=== PATIENT | female | born 1950 | race Caucasian/White ===

== ENCOUNTER → 2016-07-21 | Outpatient (CLI) | payer BC ==
--- NOTE | 2016-07-21 12:40 | MAMMOGRAPHY REPORT ---
BILATERAL DIGITAL SCREENING MAMMOGRAM WITH CAD: 07/21/2016 TECHNIQUE: Current study was also evaluated with a Computer Aided Detection (CAD) system. Bilatera l CC and MLO views were obtained. COMPARISON: Comparison is made to exams dated: 07/18/2015 mammogram, 07/17/2014 mammogram, 07/14/2013 ma mmogram, 07/03/2011 mammogram, 07/15/2012 mammogram, and 07/08/2012 mammogram - [facility] nter. BREAST COMPOSITION: The tissue of both breasts is heterogeneously dense, which may obscure small ma sses. FINDINGS: No suspicious masses, calcifications, or areas of architectural distortion are noted in e ither breast. There has been no significant interval change compared to prior exams. Scattered bilat eral benign-appearing calcifications are not significantly changed. IMPRESSION: ACR BI-RADS CATEGORY 2: BENIGN There is no mammographic evidence of malignancy. A 1 year screening mammogram is recommended. The p atient will receive written notification of the results. Approximately 10% of breast cancers are not detected with mammography. A negative mammographic repor t should not delay biopsy if a clinically suggestive mass is present. Wendy Weinstein M.D. ah/:07/21/2016 12:28:36 Piccoloist: Svetlana DEUTSCH([place])(M), [facility] letter sent: Normal 1/2 BI-RADS Code: ACR BI-RADS Category 2: Benign
== END | disposition home or self-care (01) ==
LOC: C.MAMM 10:13
PROVIDERS: ATTEND Obstetrics & Gynecology
DX: Z12.31 Encounter for screening mammogram for malignant neoplasm of breast (principal)

== ENCOUNTER → 2017-07-23 | Outpatient (CLI) | payer BC ==
--- NOTE | 2017-07-23 15:08 | MAMMOGRAPHY REPORT ---
BILATERAL DIGITAL SCREENING MAMMOGRAM TOMOSYNTHESIS WITH CAD: 07/23/2017 CLINICAL HISTORY: Routine screening. Patient has no complaints. TECHNIQUE: Breast tomosynthesis in addition to standard 2D mammography was performed. Current study was also evaluated with a Computer Aided Detection (CAD) system. COMPARISON: Comparison is made to exams dated: 07/21/2016 mammogram, 07/18/2015 mammogram, 07/17/2014 ma mmogram, 07/14/2013 mammogram, 07/15/2012 ultrasound, and 07/15/2012 mammogram - [facility] er. BREAST COMPOSITION: The tissue of both breasts is heterogeneously dense, which may obscure small mas ses. FINDINGS: No suspicious masses, calcifications, or areas of architectural distortion are noted in ei ther breast. There has been no significant interval change compared to prior exams. Scattered bilater al benign-appearing calcifications are not significantly changed. IMPRESSION: ACR BI-RADS CATEGORY 2: BENIGN There is no mammographic evidence of malignancy. A 1 year screening mammogram is recommended. The pa tient will receive written notification of the results. Approximately 10% of breast cancers are not detected with mammography. A negative mammographic report should not delay biopsy if a clinically suggestive mass is present. Wendy Weinstein M.D. /:07/23/2017 12:14:09 Gauge And Weigh Machine Adjuster: [place] García M, [facility] letter sent: Normal 1/2 BI-RADS Code: ACR BI-RADS Category 2: Benign
== END | disposition home or self-care (01) ==
LOC: C.MAMM 10:30
PROVIDERS: ATTEND Family Medicine
DX: Z12.31 Encounter for screening mammogram for malignant neoplasm of breast (principal)

== ENCOUNTER 2020-08-17 08:40 | Observation (INO) ==
[2020-08-17] MEDS ORDERED: FAMOTIDINE 20 MG in SYRINGE 3 ML IV STA (09:37)
[2020-08-17] MEDS ORDERED: diphenhydrAMINE 50 MG/ML VIAL IV STA (09:37)
[2020-08-17 09:49] LABS: Eosinophils # (auto) 0.01 K/uL (0-0.5); Eosinophils % (auto) 0.1 %; Hematocrit (blood only) 44.8 % (37-47); Hemoglobin 15.4 g/dL (12.0-16.0); Immature Granulocytes # (auto) 0.02 K/uL (0.00-0.02); Immature Granulocytes % (auto) 0.2 %; Lymphocytes # (auto) 0.56 K/uL (1.2-3.4); Mean Corpuscular Hemoglobin 29.7 pg (25-34); Mean Corpuscular Hgb Conc 34.4 g/dL (32-36); Mean Corpuscular Volume 86.5 fL (80-100); Mean Platelet Volume 13.3 fL (7.4-10.4); Monocytes # (auto) 0.23 K/uL (0.11-0.59); Neutrophils # (auto) 10.45 K/uL (1.4-6.5); Neutrophils % (auto) 92.7 %; Platelet Count 229 K/uL (130-400); RDW Standard Deviation 44.4 fL (36.4-46.3); Red Blood Count 5.18 M/uL (4.2-5.4); White Blood Count 11.27 K/uL (4.8-10.8)
[2020-08-17] MEDS ORDERED: FAMOTIDINE 20MG/5ML IV PUSH IV ONE (09:52)
[2020-08-17 10:02] LABS: Albumin Level 4.1 gm/dl (3.4-5.0); BUN Creatinine Ratio 26.2 (10-20); Bilirubin,Total 0.8 mg/dl (0.2-1); Creatinine Clr Calc Pharmacy 53.8 ml/min; Est GFR (African American) 76.1; Est GFR (Non-African American) 65.7; Globulin 4.1 gm/dl (2.5-4.0); Partial Thromboplastin Ratio 0.9; Partial Thromboplastin Time 24.8 Seconds (21.0-31.0); Potassium 3.3 mmol/L (3.5-5.1); Prothrombin Time 10.3 Seconds (9.0-12.0); Total Protein 8.2 gm/dl (6.4-8.2)
--- NOTE | 2020-08-17 10:32 | Emergency Department Note ---
ED Visit Note This patient was seen in concert with Dr. Steven and we discussed and agreed upon the history, physical, assessment, and plan. See attending's note for details. . Resident Activity Tracking Resident Involvement: Resident Care Provided Care Provided: Adult ED
--- NOTE | 2020-08-17 10:35 | Emergency Department Note ---
Impression & Plan Urticarial rash ED Provider Note NAME: BABITA RODRIGUEZ AGE: 70 SEX: F : 1950 ARRIVES VIA: Walk-In INFORMANT: Patient, ED PROVIDER(S): Paul Steven DO CHIEF COMPLAINT: Rash HPI: The patient is a 70-year-old female who presented to the emergency department for an evaluation of rash. The patient started having a rash approxi mately 1 week ago. Initially it started on her lower extremities. It was erythematous and pruritic in nature. She was seen by her primary care physician and then seen by a rn registry. At that time she was started on a course of steroids. 48 hours after the steroid she not only had no improvement but started having involvement of her upper body and trunk. She started noticing facial rash as well. She was seen again by the rn registry and sent to the emergency department for further evaluation. She has no mucous membrane involvement. She is had no fever or systemic symptoms. This morning that she thought she was having some degree of involvement of her posterior oropharynx and this is what prompted her calling her rn registry back. She denies having any recent traveling. She has had no other exposures. ROS: See above HPI for pertinent positives & negatives. A total of 10 systems reviewed and were otherwise negative. PAST MEDICAL HISTORY: See Below PAST SURGICAL HISTORY: See Below FAMILY HISTORY: See Below SOCIAL HISTORY: See Below HOME MEDICATIONS: See Below ALLERGIES: See Below VITALS: See Below PHYSICAL EXAMINATION: GENERAL: Patient is awake alert in no acute distress patient is resting comfortably and showing no signs of anxiety EYES: The conjunctivae are clear. The pupils are round and reactive. EARS, NOSE, MOUTH AND THROAT: The nose is without any evidence of any deformity. Mucous membranes are moist. NECK: The neck is nontender and supple. RESPIRATORY: Normal respiratory effort is noted there is no evidence of wheezing rhonchi or rales CARDIOVASCULAR: Regular rate and rhythm noted there no murmurs rubs or gallops normal S1 normal S2. GASTROINTESTINAL: The abdomen is soft. Abdomen is nontender. MUSCULOSKELETAL/EXTREMITIES: There is no evidence of gross deformity full range of motion is noted in the hips and shoulders. SKIN: There is a generalized rash noted over the entire body. In the lower extremities where the rash is oldest it is nonblanching but does still have an appearance of urticaria. There is some pruritic lesions noted in the lower extremities. Over the face and trunk the rash is urticarial in nature and does kenneth easily. NEUROLOGIC: Patient is awake alert and oriented x 3. MEDICAL DECISION MAKING: The patient is a 70-year-old female who is a history of diabetes who started having a rash approximately 1 week ago. The patient started having in a sending urticarial type rash which began on her lower extremities. There appears to be significant increase in the new lesions that are noted on her upper torso as well as her scalp. I discussed the patient's laboratory and radiographic studies with her. We also consulted the patient's primary rn registry who did send her to the emergency department today for further evaluation. He was very concerned that the patient may benefit from IV steroids and she may require inpatient management to ensure her blood sugar did not become out of hand. I discussed her case with the on-call [facility] hospitalist group. They have agreed to evaluate the patient in the emergency department for further management and disposition. The patient was agreeable with this plan. She was treated with IV steroid. Triage Nursing notes reviewed. Prior medical records reviewed Vital Signs: reviewed and remarkable for no significant abnormalities Differential diagnosis: Contact dermatitis, viral exanthem, urticaria, allergic reaction, Sifuentes- Kapil syndrome, toxic epidermal necrolysis, erythema multiforme, cellulitis, scabies, HSV, varicella, zoster, eczema, staph scalded skin syndrome, fungal in fection, as well as other pathologies. ER treatment provided: See below Diagnostics interpreted by me: ECG: none Cardiac Monitoring: An order was placed for continuous cardiac monitoring. The monitor shows a rate of 85 bpm with sinus rhythm. Laboratory studies: As stated above and show below. Imaging studies: See below Consultation(s): I discussed this case with Dr. Crisostomo who is on-call for the [facility] hospitalist group. Past Med/Surg History Medical History Acne Diabetes mellitus H/O herpes simplex infection H/O: depression History of uterine fibroid Hypertension Surgical History H/O colonoscopy 11/22/2009 History of biopsy Biopsy of Soft Tissue of Neck History of tonsillectomy S/P AMELIA-BSO (total abdominal hysterectomy and bilateral salpingo-oophorectomy) Family History Father Myocardial infarction Congestive heart failure Aunt Breast cancer Maternal Denies family history of Ovarian cancer Prostate cancer Colorectal cancer Social History Smoking Status: Never smoker Hx Alcohol Use: Yes Hx Substance Use: No Preferred Language: Tanzanian marital status: / Feels Safe at Home: Yes Allergies Allergies Allergy/AdvReac Type Severity Reaction Status Date / Time Sulfa (Sulfonamide Allergy Verified 08/17/20 09:50 Antibiotics) Home Meds Home Medications Medication Instructions Recorded Confirmed aspirin 81 mg tablet,delayed 81 mg PO QAM 06/11/19 08/17/20 release indapamide 1.25 mg tablet 1.25 mg PO QAM 06/11/19 08/17/20 triamcinolone acetonide 0.1 % 1 appln TOP BID gm 06/11/19 08/17/20 topical cream valacyclovir 500 mg tablet 500 mg PO DAILY PRN 06/11/19 08/17/20 metformin 1,000 mg tablet 1,000 mg PO .COMPLEX 06/23/19 08/17/20 prednisone 0 mg PO .TAPER 08/17/20 08/17/20 Results & Data (ED) Vital Signs Vital Signs - 24 hr 08/17/20 08:42 08/17/20 09:51 08/17/20 10:01 Temperature 37.1 C Temperature Source Temporal Artery Scan Pulse Rate 87 67 Respiratory Rate 16 20 Respiratory Effort / Characteristics Non-Labored Spontaneous Respiratory Depth Normal Respiratory Pattern Regular Blood Pressure 124/83 120/67 Blood Pressure Mean 96 84 Blood Pressure Position Sitting Pulse Oximetry 99 99 Oxygen Delivery Method Room Air Sepsis Recent Fever Within 48 Hours No Sepsis New/Unexplained Change in Mental Status No Sepsis Action Taken by Nursing No Action Required 08/17/20 10:05 08/17/20 10:30 08/17/20 11:00 Temperature Temperature Source Pulse Rate 65 68 66 Respiratory Rate 19 17 18 Respiratory Effort / Characteristics Respiratory Depth Respiratory Pattern Blood Pressure 117/62 114/61 Blood Pressure Mean 80 78 Blood Pressure Position Pulse Oximetry Oxygen Delivery Method Sepsis Recent Fever Within 48 Hours Sepsis New/Unexplained Change in Mental Status Sepsis Action Taken by Nursing 08/17/20 11:01 08/17/20 11:30 08/17/20 12:00 Temperature Temperature Source Pulse Rate 66 65 71 Respiratory Rate 18 19 17 Respiratory Effort / Characteristics Respiratory Depth Respiratory Pattern Blood Pressure Blood Pressure Mean Blood Pressure Position Pulse Oximetry Oxygen Delivery Method Sepsis Recent Fever Within 48 Hours Sepsis New/Unexplained Change in Mental Status Sepsis Action Taken by Nursing 08/17/20 12:30 08/17/20 13:00 08/17/20 13:16 Temperature Temperature Source Pulse Rate 71 76 62 Respiratory Rate 20 19 17 Respiratory Effort / Characteristics Respiratory Depth Respiratory Pattern Blood Pressure 125/59 L Blood Pressure Mean 81 Blood Pressure Position Pulse Oximetry Oxygen Delivery Method Sepsis Recent Fever Within 48 Hours Sepsis New/Unexplained Change in Mental Status Sepsis Action Taken by Nursing 08/17/20 13:17 08/17/20 13:30 08/17/20 13:31 Temperature Temperature Source Pulse Rate 70 68 67 Respiratory Rate 19 18 17 Respiratory Effort / Characteristics Respiratory Depth Respiratory Pattern Blood Pressure 120/63 Blood Pressure Mean 82 Blood Pressure Position Pulse Oximetry Oxygen Delivery Method Sepsis Recent Fever Within 48 Hours Sepsis New/Unexplained Change in Mental Status Sepsis Action Taken by Nursing 08/17/20 14:00 08/17/20 14:01 Temperature Temperature Source Pulse Rate 78 82 Respiratory Rate 17 20 Respiratory Effort / Characteristics Respiratory Depth Respiratory Pattern Blood Pressure 128/54 L Blood Pressure Mean 78 Blood Pressure Position Pulse Oximetry Oxygen Delivery Method Sepsis Recent Fever Within 48 Hours Sepsis New/Unexplained Change in Mental Status Sepsis Action Taken by Half-Way Medications Current Medication List: was personally reviewed by me Laboratory Data Attestation: I reviewed the patient's lab results. Result diagrams: 08/17/20 09:00 08/17/20 09:00 Lab Results 08/17/20 08/17/20 08/17/20 Range/Units 09:00 09:00 09:00 WBC 11.27 H (4.8-10.8) K/uL RBC 5.18 (4.2-5.4) M/uL Hgb 15.4 (12.0-16.0) g/dL Hct 44.8 (37-47) % MCV 86.5 (80-100) fL MCH 29.7 (25-34) pg MCHC 34.4 (32-36) g/dL RDW Std Deviation 44.4 (36.4-46.3) fL RDW Coeff of Isaías 14.0 (11.5-14.5) % Plt Count 229 (130-400) K/uL MPV 13.3 H (7.4-10.4) fL Immature Gran % (Auto) 0.2 % Neut % (Auto) 92.7 % Lymph % (Auto) 5.0 % Rush % (Auto) 2.0 % Eos % (Auto) 0.1 % Baso % (Auto) 0.0 % Neut # (Auto) 10.45 H (1.4-6.5) K/uL Lymph # (Auto) 0.56 L (1.2-3.4) K/uL Rush # (Auto) 0.23 (0.11-0.59) K/uL Eos # (Auto) 0.01 (0-0.5) K/uL Baso # (Auto) 0.00 (0-0.2) K/uL Immature Gran # (Auto) 0.02 (0.00-0.02) K/uL ESR 29 H (0-21) mm/hr PT 10.3 (9.0-12.0) Seconds INR 1.0 (0.9-1.1) APTT 24.8 (21.0-31.0) Seconds PTT Ratio 0.9 Sodium (136-145) mmol/L Potassium (3.5-5.1) mmol/L Chloride (98-107) mmol/L Carbon Dioxide (21-32) mmol/L Anion Gap (3-11) BUN (7-18) mg/dl Creatinine (0.6-1.2) mg/dl Est Cr Clr Drug Dosing ml/min Est GFR ( Amer) Est GFR (Non-Af Amer) BUN/Creatinine Ratio (10-20) Glucose (70-99) mg/dl Calcium (8.5-10.1) mg/dl Total Bilirubin (0.2-1) mg/dl AST (15-37) U/L ALT (12-78) U/L Alkaline Phosphatase (45-117) U/L C-Reactive Protein (0-0.29) mg/dl Total Protein (6.4-8.2) gm/dl Albumin (3.4-5.0) gm/dl Globulin (2.5-4.0) gm/dl Albumin/Globulin Ratio (0.9-2) Lipase (73-393) U/L Specimen Hemolysis Urine Color Urine Appearance (Clear) Urine pH (4.5-7.5) Ur Specific [place] (1.000-1.030) Urine Protein (Negative) Urine Glucose (UA) (Negative) Urine Ketones (Negative) Urine Blood (Negative) Urine Nitrite (Negative) Urine Bilirubin (Negative) Urine Urobilinogen (Negative) Ur Leukocyte Esterase (Negative) 08/17/20 08/17/20 Range/Units 09:00 11:28 WBC (4.8-10.8) K/uL RBC (4.2-5.4) M/uL Hgb (12.0-16.0) g/dL Hct (37-47) % MCV (80-100) fL MCH (25-34) pg MCHC (32-36) g/dL RDW Std Deviation (36.4-46.3) fL RDW Coeff of Isaías (11.5-14.5) % Plt Count (130-400) K/uL MPV (7.4-10.4) fL Immature Gran % (Auto) % Neut % (Auto) % Lymph % (Auto) % Rush % (Auto) % Eos % (Auto) % Baso % (Auto) % Neut # (Auto) (1.4-6.5) K/uL Lymph # (Auto) (1.2-3.4) K/uL Rush # (Auto) (0.11-0.59) K/uL Eos # (Auto) (0-0.5) K/uL Baso # (Auto) (0-0.2) K/uL Immature Gran # (Auto) (0.00-0.02) K/uL ESR (0-21) mm/hr PT (9.0-12.0) Seconds INR (0.9-1.1) APTT (21.0-31.0) Seconds PTT Ratio Sodium 137 (136-145) mmol/L Potassium 3.3 L (3.5-5.1) mmol/L Chloride 103 (98-107) mmol/L Carbon Dioxide 27 (21-32) mmol/L Anion Gap 7.0 (3-11) BUN 24 H (7-18) mg/dl Creatinine 0.90 (0.6-1.2) mg/dl Est Cr Clr Drug Dosing 53.8 ml/min Est GFR ( Amer) 76.1 Est GFR (Non-Af Amer) 65.7 BUN/Creatinine Ratio 26.2 H (10-20) Glucose 214 H (70-99) mg/dl Calcium 10.0 (8.5-10.1) mg/dl Total Bilirubin 0.8 (0.2-1) mg/dl AST 18 (15-37) U/L ALT 21 (12-78) U/L Alkaline Phosphatase 71 (45-117) U/L C-Reactive Protein 12.00 H (0-0.29) mg/dl Total Protein 8.2 (6.4-8.2) gm/dl Albumin 4.1 (3.4-5.0) gm/dl Globulin 4.1 H (2.5-4.0) gm/dl Albumin/Globulin Ratio 1.0 (0.9-2) Lipase 72 L (73-393) U/L Specimen Hemolysis Urine Color Yellow Urine Appearance Clear (Clear) Urine pH 5.5 (4.5-7.5) Ur Specific [place] 1.026 (1.000-1.030) Urine Protein Negative (Negative) Urine Glucose (UA) 3+ H (Negative) Urine Ketones 1+ H (Negative) Urine Blood Negative (Negative) Urine Nitrite Negative (Negative) Urine Bilirubin Negative (Negative) Urine Urobilinogen Negative (Negative) Ur Leukocyte Esterase Negative (Negative) Administered Medications Discontinued Medications Diphenhydramine HCl (Diphenhydramine 50 Mg/Ml Vial) 25 mg IV NOW STA Stop: 08/17/20 09:38 Last Admin: 08/17/20 09:56 Dose: 25 mg Documented by: [id number] Famotidine (Famotidine 20mg/5ml Iv Push) Confirm Administered Dose 20 mg IV .STK-MED ONE Stop: 08/17/20 09:53 Last Admin: 08/17/20 09:56 Dose: 20 mg Documented by: [id number] Famotidine 20 mg/ Syringe 5 mls @ 2.5 mls/min IV NOW STA Stop: 08/17/20 09:38 Last Admin: 08/17/20 09:56 Dose: Not Given Documented by: [id number] Methylprednisolone (Methylprednisolone 125 Mg/2 Ml Vial) 125 mg IV NOW STA Stop: 08/17/20 10:55 Last Admin: 08/17/20 11:07 Dose: 125 mg Documented by: [id number] Imaging Data Radiologist's Impression: Patient: BABITA RODRIGUEZ Admit Date: 08/17/20 MR#: [id number] Address1: [address] [place] [address] Acct ID:[id number] Address2: Date: 1950 [facility] Zip: [place] [id number] Age: 70 Location: ED Sex: F Room/Bed: Att Phy: Diagnosis: SENT BY DR. VELASCO [facility] Phy: Rashaun Ahn MD Service Date: 08/17/20 [facility] Phy: Interpreting Phy: Braden Rogers Admit Phy: Ordering Phy: Derek Greene MD cc: ~ XR chest 1V portable HISTORY: 70 years-old Female SOB acute shortness of breath COMPARISON: None TECHNIQUE: Portable AP view of the chest FINDINGS: Cardiomediastinal and hilar silhouettes are within normal limits. There is no pneumothorax, pleural effusion, airspace consolidation or overt pulmonary edema. The bones of the chest appear grossly intact. Spondylitic spurring of the spine. IMPRESSION: No acute process. ACT 112: Negative or not required by law. The above report was generated using voice recognition software. It may contain grammatical, syntax or spelling errors. Electronically signed by: Aman Rogers M.D. 08/17/2020 10:39 AM Dictated: 08/17/20 1038 Transcribed: 08/17/20 1038 Discharge Plan Visit Data Chief Complaint: Rash Stated Complaint: SENT BY DR. VELASCO ED Provider: Paul Steven ED Midlevel Provider: Derek Greene Discharge Problem: Urticarial rash Patient Disposition: Being Evaluated by Hospitalist Condition: Good Forms Stand Alone Forms: [employer] Prescriptions Prescriptions: No Action aspirin [Aspirin Low Dose] 81 mg tablet,delayed release (DR/EC) 81 mg PO QAM RF: 0 indapamide 1.25 mg tablet 1.25 mg PO QAM RF: 0 triamcinolone acetonide 0.1 % cream 1 appln TOP BID RF: 0 valacyclovir 500 mg tablet 500 mg PO DAILY PRN (Reason: Outbreak) RF: 0 metformin 1,000 mg tablet 1,000 mg PO .COMPLEX RF: 0 prednisone 20 mg tablet 0 mg PO .TAPER RF: 0 Referrals Referrals: Donavan Ahn MD [Primary Care Provider] -
--- NOTE | 2020-08-17 10:40 | XRay Report ---
XR chest 1V portable HISTORY: 70 years-old Female SOB acute shortness of breath COMPARISON: None TECHNIQUE: Portable AP view of the chest FINDINGS: Cardiomediastinal and hilar silhouettes are within normal limits. There is no pneumothorax, pleural e ffusion, airspace consolidation or overt pulmonary edema. The bones of the chest appear grossly intac t. Spondylitic spurring of the spine. IMPRESSION: No acute process. ACT 112: Negative or not required by law. The above report was generated using voice recognition software. It may contain grammatical, syntax o r spelling errors. Electronically signed by: Aman Rogers M.D. 08/17/2020 10:39 AM
[2020-08-17] MEDS ORDERED: methylPREDNISolone 125 MG/2 ML VIAL IV STA (10:54)
[2020-08-17 11:36] LABS: Appearance Urine Clear (Clear); Bilirubin Urine Negative (Negative); Blood Urine Negative (Negative); Color Urine Yellow; Glucose Urine UA 3+ (Negative); Ketones Urine 1+ (Negative); Leukocyte Esterase Urine Negative (Negative); Nitrite Urine Negative (Negative); Protein Urine Negative (Negative); Specific Gravity Urine 1.026 (1.000-1.030); Urobilinogen Urine Negative (Negative); pH Urine 5.5 (4.5-7.5)
--- NOTE | 2020-08-17 14:30 | History & Physical Report ---
Date of Service August 17, 2020 Assessment & Plan (1) Urticarial rash: Suspect possible allergic reaction to dust/mold/rodent feces? That she was exposed to last week for this started. Now with lip and tongue swelling difficulty swallowing which is improving now with IV steroids in the ER Bring in on observation overnight for continued treatment for allergic reaction and rash as below -Consult gym manager for further evaluation-much appreciated -Tryptase was checked in the ER and pending, ESR is minimally elevated at 27 -Continue IV [id number] in the ER we will continue Solu-Medrol 60 mg IV every 8 hours and convert back to prednisone on discharge -Start famotidine 20 mg IV every 12 hours Start Zyrtec 10 mg p.o. nightly Benadryl every 6 hours as needed for itching Observe for any worsening or recurrent lip and tongue swelling (2) Lip swelling: As above (3) Hypertension: Blood pressures are well controlled Continue home indapamide (4) Diabetes mellitus: Well-controlled with diet and she is lost 35 pounds and on metformin at home Hold metformin while here With hyperglycemia secondary to corticosteroid use Start NovoLog supplemental insulin and [id number] need to add on Lantus if hyperglycemia is severe (5) Hypokalemia: Mildly low potassium Replace with oral potassium chloride Follow BMP in the morning (6) Leukocytosis: WBC count 11, is likely secondary to corticosteroid use as an outpatient No need to follow CBC (7) DVT prophylaxis: SCDs, ambulation Disposition-bring in on observation overnight as above History of Present Illness Chief Complaint: Rash, throat and lip swelling Primary Care Provider: Donavan Ahn MD This patient is a 70-year-old female with a history of DM 2 on Metformin, HTN, who presents to the ER after progressively worsening rash all over her body and development of lip swelling and difficulty swallowing this morning. She reports last Thursday she started with itching on the feet and by Thursday had a rash starting on her feet and ankles. Throughout the next several days the slowly worked its way up her legs abdomen trunk and all the way up to her face and forehead by Thursday. She saw her PCP who put her on triamcinolone cream and got her an JOYA appointment with dermatology that same day. She was prescribed Atarax some prednisone 60 mg daily. She continues to be extremely itchy all over, is not sleeping, feels a burning sensation over and had some chills. Denies fevers and has been checking her temperature. She developed lip swelling and difficulty swallowing her toast this morning and went back to the block machine operator who referred her to the ER after noting those symptoms. In the ER, she received IV Solu-Medrol and IV Pepcid and felt that she was already improving with the lip swelling. She denies any shortness of breath or lightheadedness, no wheezing or cough. No abdominal pain, no nausea or vomiting. No diarrhea. Her urine is a little bit darker than usual but she is making urine. She had her first Covid vaccine 4 weeks ago and was due to get 1 2 days ago but this was placed on hold due to her rash and ongoing need for prednisone. She reports no new medications or soaps or detergents or medications-of note, she is also on multiple supplements as an outpatient to include g lucosamine/chondroitin, super B complex, Echinacea, vitamin D, Aida-C, and Aleve as needed-none of these are new. 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 She reports last Thursday and Thursday, she spent all day unpacking dishes and things from a to state that were wrapped with newspaper from the and were covered in rodent feces, dust and mold. Her chest x-ray was normal in the ER. Labs were notable for a very mild leukocytosis which is likely induced by margination from prednisone as well as mild hypokalemia and some hyperglycemia and an elevated CRP of 12. Urinalysis showed 3+ glucose and 1+ ketones. A Covid test was pending at the time of admission. She will be admitted on observation for throat and lip swelling in the setting of diffuse urticarial rash for IV steroids and close observation of her airway. Allergies Allergy/AdvReac Type Severity Reaction Status Date / Time Sulfa (Sulfonamide Allergy Verified 08/17/20 09:50 Antibiotics) Home Medications Medication Instructions Recorded Confirmed Type aspirin 81 mg tablet,delayed 81 mg PO QAM 06/11/19 08/17/20 History release indapamide 1.25 mg tablet 1.25 mg PO QAM 06/11/19 08/17/20 History triamcinolone acetonide 0.1 % 1 appln TOP BID gm 06/11/19 08/17/20 History topical cream valacyclovir 500 mg tablet 500 mg PO DAILY PRN 06/11/19 08/17/20 History metformin 1,000 mg tablet 1,000 mg PO .COMPLEX 06/23/19 08/17/20 History prednisone 0 mg PO .TAPER 08/17/20 08/17/20 History Past Med/Surg History Medical History Acne Diabetes mellitus H/O herpes simplex infection H/O: depression History of uterine fibroid Hypertension Surgical History H/O colonoscopy 11/22/2009 History of biopsy Biopsy of Soft Tissue of Neck History of tonsillectomy S/P AMELIA-BSO (total abdominal hysterectomy and bilateral salpingo-oophorectomy) Family History Father Myocardial infarction Congestive heart failure Aunt Breast cancer Maternal Denies family history of Ovarian cancer Prostate cancer Colorectal cancer Social History (Updated 08/17/20 @ 15:15 by Tish Crisostomo MD) Smoking Status: Never smoker Hx Alcohol Use: Yes Alcohol Intake Frequency: Monthly or Less Hx Substance Use: No Preferred Language: Luxembourgish marital status: / Feels Safe at Home: Yes Review of Systems 2 Review of Systems: All systems reviewed & are unremarkable except as noted in HPI & below Physical Exam Constitutional: WD/WN, vitals as above Eyes: PERRL, conjunctivae normal, anicteric sclerae ENMT: external ear and nose normal, oropharynx normal (No oral lesions noted, no tongue swelling or throat swelling) Lips with mild fullness Neck: trachea midline, no thyromegaly Respiratory: normal respiratory effort, lungs clear to auscultation Cardiovascular: RRR, no murmur, no edema Chest (Breasts): Chest: normal inspection of chest Gastrointestinal (Abdomen): normal bowel sounds, soft, nontender, no hepatosplenomegaly Musculoskeletal: Extremities: extremities normal to inspection; no cyanosis and no clubbing Skin: Diffuse erythematous macular rash from head to toe that somewhat spares the buttocks and spares the palms and soles of the feet Some of the rash is blanching well some of it is nonblanching and more purpleish in color Some of the rash is serpiginous There is no blistering of skin or sloughing of skin, no oropharynx lesions Neurologic: moves all extremities and awake; no focal motor deficits Psychiatric: A+Ox3, euthymic affect Lymphatic: no lymphedema Results & Data Results & Data ([facility]) Vital Signs (Past 12 Hours) Vital Signs Temp Pulse Resp BP Pulse Ox 08/17/20 14:01 82 20 128/54 L 08/17/20 14:00 78 17 08/17/20 13:31 67 17 08/17/20 13:30 68 18 120/63 08/17/20 13:17 70 19 08/17/20 13:16 62 17 125/59 L 08/17/20 13:00 76 19 08/17/20 12:30 71 20 08/17/20 12:00 71 17 08/17/20 11:30 65 19 08/17/20 11:01 66 18 08/17/20 11:00 66 18 114/61 08/17/20 10:30 68 17 117/62 08/17/20 10:05 65 19 08/17/20 10:01 67 20 120/67 08/17/20 09:51 99 08/17/20 08:42 37.1 C 87 16 124/83 99 Laboratory Results 08/17/20 08/17/20 08/17/20 Range/Units 14:40 14:40 11:28 WBC (4.8-10.8) K/uL RBC (4.2-5.4) M/uL Hgb (12.0-16.0) g/dL Hct (37-47) % MCV (80-100) fL MCH (25-34) pg MCHC (32-36) g/dL RDW Std Deviation (36.4-46.3) fL RDW Coeff of Isaías (11.5-14.5) % Plt Count (130-400) K/uL MPV (7.4-10.4) fL Immature Gran % (Auto) % Neut % (Auto) % Lymph % (Auto) % [place] % (Auto) % Eos % (Auto) % Baso % (Auto) % Neut # (Auto) (1.4-6.5) K/uL Lymph # (Auto) (1.2-3.4) K/uL [place] # (Auto) (0.11-0.59) K/uL Eos # (Auto) (0-0.5) K/uL Baso # (Auto) (0-0.2) K/uL Immature Gran # (Auto) (0.00-0.02) K/uL ESR (0-21) mm/hr PT (9.0-12.0) Seconds INR (0.9-1.1) APTT (21.0-31.0) Seconds PTT Ratio Sodium (136-145) mmol/L Potassium (3.5-5.1) mmol/L Chloride (98-107) mmol/L Carbon Dioxide (21-32) mmol/L Anion Gap (3-11) BUN (7-18) mg/dl Creatinine (0.6-1.2) mg/dl Est Cr Clr Drug Dosing ml/min Est GFR ( Amer) Est GFR (Non-Af Amer) BUN/Creatinine Ratio (10-20) Glucose (70-99) mg/dl Calcium (8.5-10.1) mg/dl Total Bilirubin (0.2-1) mg/dl AST (15-37) U/L ALT (12-78) U/L Alkaline Phosphatase (45-117) U/L C-Reactive Protein (0-0.29) mg/dl Total Protein (6.4-8.2) gm/dl Albumin (3.4-5.0) gm/dl Globulin (2.5-4.0) gm/dl Albumin/Globulin Ratio (0.9-2) Lipase (73-393) U/L Tryptase Specimen Hemolysis Urine Color Yellow Urine Appearance Clear (Clear) Urine pH 5.5 (4.5-7.5) Ur Specific [place] 1.026 (1.000-1.030) Urine Protein Negative (Negative) Urine Glucose (UA) 3+ H (Negative) Urine Ketones 1+ H (Negative) Urine Blood Negative (Negative) Urine Nitrite Negative (Negative) Urine Bilirubin Negative (Negative) Urine Urobilinogen Negative (Negative) Ur Leukocyte Esterase Negative (Negative) COVID-19 Eval Order Covid19 IDNow atMMAC SARS-CoV-2, RNA, NAAT NEGATIVE (NEGATIVE) 08/17/20 08/17/20 08/17/20 Range/Units 09:00 09:00 09:00 WBC (4.8-10.8) K/uL RBC (4.2-5.4) M/uL Hgb (12.0-16.0) g/dL Hct (37-47) % MCV (80-100) fL MCH (25-34) pg MCHC (32-36) g/dL RDW Std Deviation (36.4-46.3) fL RDW Coeff of Isaías (11.5-14.5) % Plt Count (130-400) K/uL MPV (7.4-10.4) fL Immature Gran % (Auto) % Neut % (Auto) % Lymph % (Auto) % [place] % (Auto) % Eos % (Auto) % Baso % (Auto) % Neut # (Auto) (1.4-6.5) K/uL Lymph # (Auto) (1.2-3.4) K/uL [place] # (Auto) (0.11-0.59) K/uL Eos # (Auto) (0-0.5) K/uL Baso # (Auto) (0-0.2) K/uL Immature Gran # (Auto) (0.00-0.02) K/uL ESR (0-21) mm/hr PT 10.3 (9.0-12.0) Seconds INR 1.0 (0.9-1.1) APTT 24.8 (21.0-31.0) Seconds PTT Ratio 0.9 Sodium 137 (136-145) mmol/L Potassium 3.3 L (3.5-5.1) mmol/L Chloride 103 (98-107) mmol/L Carbon Dioxide 27 (21-32) mmol/L Anion Gap 7.0 (3-11) BUN 24 H (7-18) mg/dl Creatinine 0.90 (0.6-1.2) mg/dl Est Cr Clr Drug Dosing 53.8 ml/min Est GFR ( Amer) 76.1 Est GFR (Non-Af Amer) 65.7 BUN/Creatinine Ratio 26.2 H (10-20) Glucose 214 H (70-99) mg/dl Calcium 10.0 (8.5-10.1) mg/dl Total Bilirubin 0.8 (0.2-1) mg/dl AST 18 (15-37) U/L ALT 21 (12-78) U/L Alkaline Phosphatase 71 (45-117) U/L C-Reactive Protein 12.00 H (0-0.29) mg/dl Total Protein 8.2 (6.4-8.2) gm/dl Albumin 4.1 (3.4-5.0) gm/dl Globulin 4.1 H (2.5-4.0) gm/dl Albumin/Globulin Ratio 1.0 (0.9-2) Lipase 72 L (73-393) U/L Tryptase Pending Specimen Hemolysis Urine Color Urine Appearance (Clear) Urine pH (4.5-7.5) Ur Specific [place] (1.000-1.030) Urine Protein (Negative) Urine Glucose (UA) (Negative) Urine Ketones (Negative) Urine Blood (Negative) Urine Nitrite (Negative) Urine Bilirubin (Negative) Urine Urobilinogen (Negative) Ur Leukocyte Esterase (Negative) COVID-19 Eval Order SARS-CoV-2, RNA, NAAT (NEGATIVE) 08/17/20 08/17/20 Range/Units 09:00 09:00 WBC 11.27 H (4.8-10.8) K/uL RBC 5.18 (4.2-5.4) M/uL Hgb 15.4 (12.0-16.0) g/dL Hct 44.8 (37-47) % MCV 86.5 (80-100) fL MCH 29.7 (25-34) pg MCHC 34.4 (32-36) g/dL RDW Std Deviation 44.4 (36.4-46.3) fL RDW Coeff of Isaías 14.0 (11.5-14.5) % Plt Count 229 (130-400) K/uL MPV 13.3 H (7.4-10.4) fL Immature Gran % (Auto) 0.2 % Neut % (Auto) 92.7 % Lymph % (Auto) 5.0 % [place] % (Auto) 2.0 % Eos % (Auto) 0.1 % Baso % (Auto) 0.0 % Neut # (Auto) 10.45 H (1.4-6.5) K/uL Lymph # (Auto) 0.56 L (1.2-3.4) K/uL [place] # (Auto) 0.23 (0.11-0.59) K/uL Eos # (Auto) 0.01 (0-0.5) K/uL Baso # (Auto) 0.00 (0-0.2) K/uL Immature Gran # (Auto) 0.02 (0.00-0.02) K/uL ESR 29 H (0-21) mm/hr PT (9.0-12.0) Seconds INR (0.9-1.1) APTT (21.0-31.0) Seconds PTT Ratio Sodium (136-145) mmol/L Potassium (3.5-5.1) mmol/L Chloride (98-107) mmol/L Carbon Dioxide (21-32) mmol/L Anion Gap (3-11) BUN (7-18) mg/dl Creatinine (0.6-1.2) mg/dl Est Cr Clr Drug Dosing ml/min Est GFR ( Amer) Est GFR (Non-Af Amer) BUN/Creatinine Ratio (10-20) Glucose (70-99) mg/dl Calcium (8.5-10.1) mg/dl Total Bilirubin (0.2-1) mg/dl AST (15-37) U/L ALT (12-78) U/L Alkaline Phosphatase (45-117) U/L C-Reactive Protein (0-0.29) mg/dl Total Protein (6.4-8.2) gm/dl Albumin (3.4-5.0) gm/dl Globulin (2.5-4.0) gm/dl Albumin/Globulin Ratio (0.9-2) Lipase (73-393) U/L Tryptase Specimen Hemolysis Urine Color Urine Appearance (Clear) Urine pH (4.5-7.5) Ur Specific [place] (1.000-1.030) Urine Protein (Negative) Urine Glucose (UA) (Negative) Urine Ketones (Negative) Urine Blood (Negative) Urine Nitrite (Negative) Urine Bilirubin (Negative) Urine Urobilinogen (Negative) Ur Leukocyte Esterase (Negative) COVID-19 Eval Order SARS-CoV-2, RNA, NAAT (NEGATIVE) Diagnostic Findings Chest [id number]-[id number] Code Status & VTE Plan Code Status DNR/DNI as per discussion with patient VTE Prophylaxis Plan VTE Prophylaxis will be ordered: Yes PG Care Time/CCT Total # of Minutes Spent Total Time Spent with Patient: Total time spent is greater than 50% in coordination of care (as documented) at patient's floor/unit and/or counseling patient: Coding Level of Care Code 78639 OBS Care - Level 3 Diagnoses Urticarial rash L50.9 Lip swelling R22.0 Hypertension I10 Diabetes mellitus E11.9 Hypokalemia E87.6 Leukocytosis D72.829 DVT prophylaxis Z29.9
[2020-08-17] MEDS ORDERED: POTASSIUM CHLORIDE CRTAB 20 MEQ TABCR PO STA (14:32)
--- NOTE | 2020-08-17 17:09 | Allergy & Immunology Consult ---
Date of Consultation August 17, 2020 Assessment & Plan (1) Urticarial rash: This is a 70-year-old female who presents with urticaria and angioedema that would be classified as acute in nature based on the timing/duration. This does not appear to be driven by any food, medication, or bee sting reaction.. She did have exposure to dust, mold, rodent droppings. However, these usually will not result in diffuse hives, particularly ones that would persist for a week. I suspect that this will end up being idiopathic urticaria versus an underlying mast cell disorder like mast cell activation syndrome. The tryptase should help to sort this out. The rash on the legs has a different appearance and I suspect this these are due to bruising from scratching. I agree with continuing systemic steroid, and this can be switched over to oral, in the 40-60 mg range for five days followed by a taper at home by 10 mg every three days. We should also maximize her antihistamines and would have her take cetirizine 10 mg p.o. b.i.d. and doxepin 20 mg at bedtime. For breakthrough symptoms, she can take hydroxyzine 25 mg q6h as needed. If she is still getting hives despite this regimen, we can add either famotidine 40 mg p.o. b.i.d., montelukast 10 mg daily, or both. As the angioedema is improving, I do not anticipate any airway concerns or other complications. The hives themselves are not dangerous, and she can still be discharged tomorrow even if these are present. I will arrange for follow-up early next week. Present on Admission?: Yes (2) Lip swelling: Present on Admission?: Yes History of Present Illness History of Present Illness This is a 64 female who presents with persistently worsening rash associated with lip swelling and difficulty swallowing. This started about a week ago with itching of the feet and then progressed. The itching when upper body and then progressed to involved basically all parts. She was initially seen by PCP input on triamcinolone and then saw Dermatology. She was given Atarax and prednisone 60 mg daily. She was taking 50 mg of hydroxyzine q 6 h, which relieved symptoms for about 2 hours. However, she continued to have symptoms. This morning, she developed swelling of the lips and difficulty swallowing, and was seen by Dermatology. Referred to emergency room. She was given IV Solu-Medrol and IV Pepcid and did note some improvement with lip swelling. She had no other associated symptoms. When this 1st started she did have some chills, no fevers or other symptoms. The only potential trigger may have been exposure to rodent feces, dust and mold. She was unpacking dishes wrapped in old newspapers. Her lab work has been largely unremarkable so far, without any eosinophilia. Tryptase was ordered in the ER in still pending. She had a left shift with low lymphocytes, and this was on prednisone. Her ESR was slightly elevated and her CRP was significantly eleva ariana. Allergies Allergy/AdvReac Type Severity Reaction Status Date / Time Sulfa (Sulfonamide Allergy Verified 08/17/20 09:50 Antibiotics) Home Medications Medication Instructions Recorded Confirmed Type aspirin 81 mg tablet,delayed 81 mg PO QAM 06/11/19 08/17/20 History release indapamide 1.25 mg tablet 1.25 mg PO QAM 06/11/19 08/17/20 History triamcinolone acetonide 0.1 % 1 appln TOP BID gm 06/11/19 08/17/20 History topical cream valacyclovir 500 mg tablet 500 mg PO DAILY PRN 06/11/19 08/17/20 History metformin 1,000 mg tablet 1,000 mg PO .COMPLEX 06/23/19 08/17/20 History prednisone 0 mg PO .TAPER 08/17/20 08/17/20 History Patient History Medical History Acne Diabetes mellitus H/O herpes simplex infection H/O: depression History of uterine fibroid Hypertension Surgical History H/O colonoscopy 11/22/2009 History of biopsy Biopsy of Soft Tissue of Neck History of tonsillectomy S/P AMELIA-BSO (total abdominal hysterectomy and bilateral salpingo-oophorectomy) Family History Father Myocardial infarction Congestive heart failure Aunt Breast cancer Maternal Denies family history of Ovarian cancer Prostate cancer Colorectal cancer Social History (Updated 08/17/20 @ 15:15 by Tish Crisostomo MD) Smoking Status: Never smoker Second Hand Exposure: No; Hx Alcohol Use: No Hx Substance Use: No Preferred Language: Kiswahili Communication Ability: Effective Beliefs That Will Affect Care: None marital status: / Current Living Situation: Alone Feels Safe at Home: Yes Assistive Devices: None Review of Systems Review of Systems: All systems reviewed & are unremarkable except as noted in HPI & below Physical Exam Constitutional: WD/WN, vitals as above no altered mental status and not in distress Eyes: no eyelid abnormality, no conjunctival abnormality and sclerae not anicteric ENMT: Ears: no TM abnormality and able to visualize TM Nose: no turbinate abnormality, no nasal mucous membrane abnormality, no nasal discharge, nasal mucous membranes not dry and no nasal polyps Mouth: no lip abnormality Throat: uvula midline; no tonsil abnormality Neck: trachea midline Thyroid: normal thyroid Respiratory: no retractions, does not use accessory muscles, no cough, normal respiratory pattern, expiratory phase not prolonged and no audible wheezes Auscultation: lungs clear to auscultation bilaterally; no crackles, no rhonchi and no wheezes Cardiovascular: Rate/Rhythm: regular rate and regular rhythm Heart Sounds: normal S1 and normal S2; no murmur and no cardiac rub Extremities: no edema Gastrointestinal (Abdomen): Inspection/Auscultation: abdomen normal to inspection and normal bowel sounds Percussion/Palpation: abdomen nontender Musculoskeletal: Head/Neck/Chest: + head abnormal to inspection Skin: + rash; no dry skin and no erythema diffuse urticaria. Lesions on legs appear as petechiae, bruising. Neurologic: awake; not confused Psychiatric: A+Ox3, euthymic affect Lymphatic: no lymphadenopathy Results & Data ([facility]) Vital Signs (Past 12 Hours) Vital Signs Temp Pulse Resp BP Pulse Ox 08/17/20 15:40 20 96 08/17/20 15:30 105/51 L 08/17/20 15:00 122/66 08/17/20 14:42 70 12 08/17/20 14:02 89 18 08/17/20 14:01 82 20 128/54 L 08/17/20 14:00 78 17 08/17/20 13:31 67 17 08/17/20 13:30 68 18 120/63 08/17/20 13:17 70 19 08/17/20 13:16 62 17 125/59 L 08/17/20 13:00 76 19 08/17/20 12:30 71 20 08/17/20 12:00 71 17 08/17/20 11:30 65 19 08/17/20 11:01 66 18 08/17/20 11:00 66 18 114/61 08/17/20 10:30 68 17 117/62 08/17/20 10:05 65 19 08/17/20 10:01 67 20 120/67 08/17/20 09:51 99 08/17/20 08:42 37.1 C 87 16 124/83 99 Coding Level of Care Code 32174 Initial Inpt Care Lvl 2 Diagnoses Urticarial rash L50.9 Lip swelling R22.0
[2020-08-17] MEDS ORDERED: ALUMINUM/MAGNESIUM SUSP 30 ML UDC PO PRN (17:11)
[2020-08-17] MEDS ORDERED: GLUCAGON FOR INJ 1 MG VIAL SQ PRN (17:11)
[2020-08-17] MEDS ORDERED: GLUCOSE 10 TABS/TUBE PO PRN (17:11)
[2020-08-17] MEDS ORDERED: ONDANSETRON INJ 2 MG/ML 2 ML VIAL IV PRN (17:11)
[2020-08-17] MEDS ORDERED: CARBOHYDRATES FOR HYPOGLYCEMIA PO PRN (17:11)
[2020-08-17] MEDS ORDERED: GLUCOSE 40% GEL 15 GM TUBE PO PRN (17:11)
[2020-08-17] MEDS ORDERED: POLYETHYLENE (MIRALAX) 17 GM PACK PO PRN (17:11)
[2020-08-17] MEDS ORDERED: diphenhydrAMINE Capsule 25 MG CAP PO PRN (17:11)
[2020-08-17] MEDS ORDERED: ACETAMINOPHEN 325 MG TAB PO PRN (17:11)
[2020-08-17] MEDS ORDERED: DEXTROSE 50% 50 ML SYRINGE IV PRN (17:11)
[2020-08-17] MEDS: INSULIN ASPART 100 UNITS/ML 3 ML PEN SC SCH ×2 (18:41→21:18)
[2020-08-17] MEDS ORDERED: hydrOXYzine HCl 25 MG TAB PO SCH (21:00)
[2020-08-17] MEDS: TRIAMCINOLONE ACET 0.1% CR 15 GM TUBE TOP SCH (21:17)
[2020-08-17] MEDS: FAMOTIDINE 20 MG in SYRINGE 3 ML IV SCH (21:19)
[2020-08-17] MEDS: CETIRIZINE HCL 10 MG TABLET PO SCH (21:19)
[2020-08-17] MEDS: methylPREDNISolone 60 MG in SYRINGE 0 ML IV SCH (21:19)
[2020-08-18] MEDS ORDERED: hydrOXYzine HCl 25 MG TAB PO PRN ×2 (03:35→08:12)
[2020-08-18] MEDS: methylPREDNISolone 60 MG in SYRINGE 0 ML IV SCH (05:09)
[2020-08-18 08:06] LABS: BUN Creatinine Ratio 36.2 (10-20); Calcium 9.8 mg/dl (8.5-10.1); Est GFR (African American) 110.4; Est GFR (Non-African American) 95.3; Potassium 3.7 mmol/L (3.5-5.1)
[2020-08-18] MEDS ORDERED: MONTELUKAST SODIUM 10 MG TABLET PO ONE (08:12)
[2020-08-18] MEDS ORDERED: FAMOTIDINE 20 MG in SYRINGE 3 ML IV SCH (08:15)
[2020-08-18] MEDS: INSULIN ASPART 100 UNITS/ML 3 ML PEN SC SCH ×4 (08:22→20:48)
[2020-08-18] MEDS: INDAPAMIDE 1.25 MG TAB PO SCH (08:26)
[2020-08-18] MEDS: CETIRIZINE HCL 10 MG TABLET PO SCH ×2 (08:26→20:47)
[2020-08-18] MEDS: TRIAMCINOLONE ACET 0.1% CR 15 GM TUBE TOP SCH ×2 (08:27→20:46)
[2020-08-18] MEDS: ASPIRIN 81 MG ECTAB PO SCH (08:27)
[2020-08-18] MEDS: FAMOTIDINE 20 MG in SYRINGE 3 ML IV SCH ×2 (08:27→20:50)
[2020-08-18] MEDS ORDERED: metFORMIN HCL 500 MG TAB PO ONE (11:57)
[2020-08-18] MEDS ORDERED: LORazepam 0.5 MG TAB PO PRN (11:59)
[2020-08-18] MEDS: methylPREDNISolone 40 MG in SYRINGE 0 ML IV SCH (12:38)
--- NOTE | 2020-08-18 16:55 | Hospitalist Progress Note ---
Date of Service August 18, 2020 Assessment & Plan (1) Urticarial rash: Suspect possible allergic reaction to dust/mold/rodent feces? That she was exposed to last week for this started. Now with lip and tongue swelling difficulty swallowing which is improving now with IV steroids in the ER Bring in on observation overnight for continued treatment for allergic reaction and rash as below -Consult caustic operator for further evaluation-much appreciated -Tryptase was checked in the ER and pending, ESR is minimally elevated at 27 -Continue IV [id number] in the ER we will continue Solu-Medrol need to reduce Solu-Medrol due to glucose elevation -Start famotidine 20 mg IV every 12 hours Start Zyrtec 10 mg p.o. nightly Did add Atarax for itching and started Singulair therapy (2) Lip swelling: As above (3) Hypertension: Blood pressures are well controlled Continue home indapamide (4) Diabetes mellitus: Well-controlled with diet and she is lost 35 pounds and on metformin at home Patient is more concerned about using insulin we will change insulin scale the starting at 200 and react her Metformin back to her regiment With hyperglycemia secondary to corticosteroid use (5) Hypokalemia: Mildly low potassium Replace with oral potassium chloride Follow BMP in the morning (6) Leukocytosis: WBC count 11, is likely secondary to corticosteroid use as an outpatient No need to follow CBC (7) DVT prophylaxis: SCDs, ambulation Disposition-bring in on observation overnight as above Admission and Anticipated Discharge Date Admission Date: August 17, 2020 Subjective Patient admitted with diffuse allergic reaction with urticaria and concern for angioedema. Patient has improvement in her airway symptoms. She still has remnants of her skin rash and complains of significant pruritus today. She is markedly anxious regarding this is wishes to have her pruritus more well controlled for be considered for discharge. She is having no stridor she is having no swallowing difficulties and she is eating food well Review of Systems Review of Systems: Mild distress and fatigue no headache, blurry or double vision no speech or swallowing issues no stridor no chest pain, pressure or palpitations no shortness of breath, cough or wheezes no abdominal pain, nausea or vomiting, diarrhea or constipation no dysuria, hematuria or frequency no focal joint pain or swelling no back pain, CVA tenderness or radicular pain Skin exam shows various stages of both blanchable and nonblanchable rashes which are well-circumscribed but diffuse all over her whole body including her scalp but sparing her palms and soles. no focal signs of weakness or numbness or altered sensation no complaints of anxiety or depression.. Physical Exam Physical Exam: The patient appeared well nourished and normally developed. Vital signs as documented. Head exam is normocephalic atraumatic no scleral icterus Neck is without JVD, thyromegaly, or carotid bruits no lymphadenopathy. Lungs are clear to auscultation, no focal loss of breath sounds stridor no wheezes Cardiac exam, Rhythm is regular.. No murmurs, rubs or gallops. Abdominal exam reveals normal bowel sounds, soft non tender, no masses Extremities are nonedematous and both pedal pulses are present Neurologic exam is alert and oriented, no focal loss of strength or sensation Skin is with well-circumscribed well demarcated both flat and elevated rashes about her body. Some are blanchable some or not there is no rashes on her soft palate palms or soles Psychologically is without concerns for anxiety or depression Results & Data Results & Data ([facility]) Vital Signs (Past 12 Hours) Vital Signs Temp Pulse Pulse Resp BP BP Pulse Ox 08/18/20 15:36 86 08/18/20 15:12 98.4 F 64 18 130/73 94 08/18/20 11:18 98.4 F 72 18 116/77 96 08/18/20 07:21 98.1 F 67 18 134/71 91 PG Care Time/CCT Total # of Minutes Spent Total Time Spent with Patient: Total time spent is greater than 50% in coordination of care (as documented) at patient's floor/unit and/or counseling patient: Coding Level of Care Code 12887 Subseq Hosp Care Lvl 2 Diagnoses Urticarial rash L50.9 Lip swelling R22.0 Hypertension I10 Diabetes mellitus E11.9 Hypokalemia E87.6 Leukocytosis D72.829 DVT prophylaxis Z29.9
[2020-08-18] MEDS: metFORMIN HCL 500 MG TAB PO SCH (17:17)
[2020-08-18] MEDS ORDERED: DOXEPIN HCL 25 MG CAPSULE PO SCH (21:00)
[2020-08-19] MEDS: methylPREDNISolone 40 MG in SYRINGE 0 ML IV SCH ×2 (00:03→11:49)
[2020-08-19] MEDS: INDAPAMIDE 1.25 MG TAB PO SCH (07:33)
[2020-08-19] MEDS: metFORMIN HCL 500 MG TAB PO SCH (07:33)
[2020-08-19] MEDS: ASPIRIN 81 MG ECTAB PO SCH (07:33)
[2020-08-19] MEDS: CETIRIZINE HCL 10 MG TABLET PO SCH (07:33)
[2020-08-19] MEDS: FAMOTIDINE 20 MG in SYRINGE 3 ML IV SCH (07:34)
[2020-08-19] MEDS: TRIAMCINOLONE ACET 0.1% CR 15 GM TUBE TOP SCH (07:35)
[2020-08-19] MEDS: INSULIN ASPART 100 UNITS/ML 3 ML PEN SC SCH ×2 (08:02→11:52)
--- NOTE | 2020-08-19 15:00 | Discharge Summary ---
Date of Service August 19, 2020 Admission HPI Per Admitting Provider This patient is a 70-year-old female with a history of DM 2 on Metformin, HTN, who presents to the ER after progressively worsening rash all over her body and development of lip swelling and difficulty swallowing this morning. She reports last Thursday she started with itching on the feet and by Thursday had a rash starting on her feet and ankles. Throughout the next several days the slowly worked its way up her legs abdomen trunk and all the way up to her face and forehead by Thursday. She saw her PCP who put her on triamcinolone cream and got her an JOYA appointment with dermatology that same day. She was prescribed Atarax some prednisone 60 mg daily. She continues to be extremely itchy all over, is not sleeping, feels a burning sensation over and had some chills. Denies fevers and has been checking her temperature. She developed lip swelling and difficulty swallowing her toast this morning and went back to the utility bill collection clerk who referred her to the ER after noting those symptoms. In the ER, she received IV Solu-Medrol and IV Pepcid and felt that she was already improving with the lip swelling. She denies any shortness of breath or lightheadedness, no wheezing or cough. No abdominal pain, no nausea or vomiting. No diarrhea. Her urine is a little bit darker than usual but she is making urine. She had her first Covid vaccine 4 weeks ago and was due to get 1 2 days ago but this was placed on hold due to her rash and ongoing need for prednisone. She reports no new medications or soaps or detergents or medications-of note, she is also on multiple supplements as an outpatient to include glucosamine/chondroitin, super B complex, Echinacea, vitamin D, Aida-C, and Aleve as needed-none of these are new. 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 She reports last Thursday and Thursday, she spent all day unpacking dishes and things from a to state that were wrapped with newspaper from the and were covered in rodent feces, dust and mold. Her chest x-ray was normal in the ER. Labs were notable for a very mild leukocytosis which is likely induced by margination from prednisone as well as mild hypokalemia and some hyperglycemia and an elevated CRP of 12. Urinalysis showed 3+ glucose and 1+ ketones. A Covid test was pending at the time of admission. She will be admitted on observation for throat and lip swelling in the setting of diffuse urticarial rash for IV steroids and close observation of her airway. Principal Diagnosis allergic reaction, urticaria angio edema Discharge Data Allergies Allergy/AdvReac Type Severity Reaction Status Date / Time Sulfa (Sulfonamide Allergy Verified 08/17/20 09:50 Antibiotics) Consultations 08/17/20 12:37 ED Decision to Admit Stat 08/17/20 17:11 Consult Allergy / Immunology Routine Hospital Course (1) Urticarial rash: Suspect possible allergic reaction to dust/mold/rodent feces? That she was exposed to last week for this started. -Tryptase was checked in the ER and pending, ESR is minimally elevated at 27 did much better on day 2 home recommendations Prednisone 40 mg a day for five days followed by a taper at home by 10 mg every three days. Cetirizine 10 mg p.o. b.i.d. famotidine 40 mg p.o. b.i.d. for 10 bdays [address]xep[address] [facility] for one week For breakthrough symptoms, hydroxyzine 25 mg q6h as needed( you should have this Rx already). will recommend follow up with pcp and allergy (2) Lip swelling: angio edema-. resolved (3) Hypertension: Blood pressures are well controlled Continue home indapamide (4) Diabetes mellitus: Well-controlled with diet and she is lost 35 pounds and on metformin at home (5) Hypokalemia: Mildly low potassium Replace with oral potassium chloride (6) Leukocytosis: WBC count 11, not suspicious of infection Total Time Total Time Spent Total Time Spent (In Minutes): It required greater than 30 minutes to prepare this patient for discharge Discharge Plan Discharge Items Patient Disposition: Home - Self-Care Reason For Visit: ALLERGIC REACTION Discharge Diagnosis: allergic reaction anigo edema->resolved Condition on Discharge: Good Activity: Resume your previous activity Non-emergency contact: Primary Care Provider and Specialist Call non-emergency contact if: you have any medication questions and your symptoms worsen Follow-up/Referrals: Donavan Ahn MD [Primary Care Provider] - Diet: Carb Consistent or DM2 Addtl Attending Provider Instructions: Please follow up with your primary care provider this week and consider having your pcp schedule an appointment with allergy, you did see DR Harmon in the emergency room His recommendations are Prednisone 40 mg a day for five days followed by a taper at home by 10 mg every three days. Cetirizine 10 mg p.o. b.i.d. famotidine 40 mg p.o. b.i.d. for 10 bdays do[facility]epin [facility] at [facility] For breakthrough symptoms, hydroxyzine 25 mg q6h as needed( you chuck uld have this Rx already). Pending Studies at Discharge: No Stand-Alone Forms: My [facility] [employer], Smoking Cessation Medications and DC Order Prescriptions: New cetirizine 10 mg Tablet 10 mg PO BID Qty: 60 RF: 1 doxepin 25 mg Capsule 25 mg PO HS Qty: 7 RF: 0 prednisone 10 mg tablet 10 mg PO UD Qty: 30 RF: 0 famotidine [Pepcid] 40 mg tablet 40 mg PO BID Qty: 20 RF: 0 Continued aspirin [Aspirin Low Dose] 81 mg tablet,delayed release (DR/EC) 81 mg PO QAM RF: 0 indapamide 1.25 mg tablet 1.25 mg PO QAM RF: 0 triamcinolone acetonide 0.1 % cream 1 appln TOP BID RF: 0 valacyclovir 500 mg tablet 500 mg PO DAILY PRN (Reason: Outbreak) RF: 0 metformin 1,000 mg tablet 1,000 mg PO .COMPLEX RF: 0 Discontinued prednisone 20 mg tablet 0 mg PO .TAPER RF: 0 Discharge Orders: Discharge Order (Routine); Ordered 08/19/20 Ordered By: Abdiel Tamayo/Other Patient Handouts: Allergy Overview Admission Data Admit Date/Time: 08/17/20 14:29 Attending Provider: Abdiel Fuller Admit Provider: Tish Crisostomo Primary Care Provider: Donavan Ahn Other Providers: Tish Crisostomo ; Acosta Harmon Other Interventions: Discharge Summary Assessment (RN) Last Done: 08/19/20 13:02 Coding Level of Care Code D/C Day Management >30 mins Diagnoses Urticarial rash L50.9 Lip swelling R22.0 Hypertension I10 Diabetes mellitus E11.9 Hypokalemia E87.6 Leukocytosis D72.829
== END 2020-08-19 14:18 | disposition home or self-care (01) ==
LOC: 2N 08:40 → ED 08:40 → SUATTDRO 14:29 → 2N 15:58